=== PATIENT | female | born 1960 | race Caucasian/White ===

== ENCOUNTER → 2017-04-03 | Outpatient (CLI) | payer OTHER ==
[~2017-04-03] MED LIST: BENTYL 10MG CAP10 MG PO; CEFEPIME 1 GM IV; HUMALOG100 UNIT/2 SQ; LANTUS100 UNIT/1 SQ; LASIX 40 MG TAB40 MG PO; LEVAQUIN500 MG PO; MELOXICAM15 MG PO; NEURONTIN 400400 MG PO; NORCO 10-325 T1 EACH PO; PERCOCET 5/325 T1 EA PO; POTASSIUM CHLO10 MEQ PO; POVIDONE-IOD28.35 GM TP; PRAVACHOL20 MG PO; PROZAC 20 MG CA20 MG PO; RESTORIL 30 MG30 MG PO; TENORMIN 25 MG25 MG PO; TIZANIDINE HCL4 M1 PO; VITAMIN C 500500 MG PO
== END ==
LOC: KOH-I 04-02 09:30
DX: L03.116 Cellulitis of left lower limb (principal)
CPT/HCPCS: 73718

== ENCOUNTER → 2017-04-22 | Outpatient (CLI) | payer OTHER | LOC: OPSV 13:42 | DX: Z48.00 Encounter for change or removal of nonsurgical wound dressing (principal); E11.621 Type 2 diabetes mellitus with foot ulcer; L97.529 Non-pressure chronic ulcer of other part of left foot with unspecified severity; L02.612 Cutaneous abscess of left foot; E11.69 Type 2 diabetes mellitus with other specified complication; M86.9 Osteomyelitis, unspecified | CPT/HCPCS: G0463 ==

== ENCOUNTER → 2017-07-29 | Outpatient (CLI) | payer OTHER | LOC: OPSV 12:30 | DX: Z48.00 Encounter for change or removal of nonsurgical wound dressing (principal) | CPT/HCPCS: G0463 ==